=== PATIENT | female | born 1975 | race Caucasian/White ===

== ENCOUNTER → 2019-05-11 | Outpatient (CLI) | payer OTHER ==
[2019-05-11 17:12] LABS: EOS # 0.4 (0.04-0.40); EOS % 7.3 % (1.0-5.0); HEMOGLOBIN 13.6 g/dL (12.5-16.0); LYMPH# 1.6 (1.50-4.00); MEAN CELL VOLUME 95 fl (78-100); MEAN CORPUSCULAR HEMOGLOBIN 32 pg (27-31); MEAN CORPUSCULAR HGB CONC 33 g/dL (33-37); MEAN PLATELET VOLUME 10.6 fl (7.4-10.4); MONO # 0.5 (0.20-0.80); NEU # 3.4 (1.40-6.50); PLATELET COUNT 175 K/mm3 (130-400); RED BLOOD COUNT 4.32 M/mm3 (4.10-5.30); RED CELL DISTRIBUTION WIDTH 12.9 % (11.5-14.5); WHITE BLOOD COUNT 5.9 K/mm3 (4.8-10.8)
[2019-05-11 17:14] LABS: ALBUMIN 4.4 g/dL (3.5-5.0)
[2019-05-11 17:15] LABS: POTASSIUM 3.9 mmol/L (3.5-5.1)
[2019-05-11 17:16] LABS: CALCIUM 9.4 mg/dL (8.3-10.5)
[2019-05-11 17:17] LABS: TOTAL PROTEIN 7.7 g/dL (6.4-8.3)
[2019-05-11 17:19] LABS: TOTAL BILIRUBIN 0.2 mg/dL (0.2-1.2)
[2019-05-11 17:21] LABS: PHENYTOIN (DILANTIN) 6.4 ug/mL (10.0-20.0)
== END ==
LOC: LAB 16:49
PROVIDERS: Family Medicine
DX: F32.9 Major depressive disorder, single episode, unspecified (principal); G40.909 Epilepsy, unspecified, not intractable, without status epilepticus

== ENCOUNTER → 2019-09-06 | Outpatient (CLI) | payer OTHER | LOC: MAMMO 10:00 | DX: Z12.31 Encounter for screening mammogram for malignant neoplasm of breast (principal) ==

== ENCOUNTER → 2019-10-03 | Outpatient (CLI) | payer OTHER | LOC: LAB 12:07 | DX: Z20.828 Contact with and (suspected) exposure to other viral communicable diseases (principal) ==

== ENCOUNTER → 2019-10-25 | Outpatient (CLI) | payer OTHER | LOC: LAB 13:47 | DX: R56.9 Unspecified convulsions (principal) ==

== ENCOUNTER → 2019-12-14 | Outpatient (CLI) | payer OTHER | LOC: LAB 11:43 | DX: R11.0 Nausea (principal); R05 Cough; R09.81 Nasal congestion; L98.8 Other specified disorders of the skin and subcutaneous tissue; Z20.828 Contact with and (suspected) exposure to other viral communicable diseases ==

== ENCOUNTER → 2020-03-30 | Outpatient (CLI) | payer OTHER | LOC: LAB 07:32 | DX: R05 Cough (principal); R68.83 Chills (without fever); R52 Pain, unspecified; R09.81 Nasal congestion; R19.7 Diarrhea, unspecified; Z20.828 Contact with and (suspected) exposure to other viral communicable diseases ==

== ENCOUNTER → 2020-04-02 | Outpatient (CLI) | payer OTHER | LOC: LAB 07:31 | DX: R05 Cough (principal); M79.10 Myalgia, unspecified site; R09.81 Nasal congestion; R19.7 Diarrhea, unspecified; R68.83 Chills (without fever); Z20.828 Contact with and (suspected) exposure to other viral communicable diseases ==

== ENCOUNTER → 2020-04-25 | Outpatient (CLI) | payer OTHER | LOC: LAB 12:20 | DX: R56.9 Unspecified convulsions (principal); Z79.899 Other long term (current) drug therapy ==

== ENCOUNTER → 2020-11-21 | Outpatient (CLI) | payer OTHER ==
[2020-11-21 08:40] LABS: PHENYTOIN (DILANTIN) 11.3 ug/mL (10.0-20.0)
[2020-11-21 08:42] LABS: MAGNESIUM 1.98 mg/dL (1.60-2.60)
[2020-11-21 17:18] LABS: FOLATE (FOLIC ACID) 7.3 ng/mL (2.0-20.0)
== END ==
LOC: LAB 08:04
PROVIDERS: Psychiatry & Neurology Neurology
DX: E61.1 Iron deficiency (principal); R56.9 Unspecified convulsions; G25.81 Restless legs syndrome; Z79.899 Other long term (current) drug therapy

== ENCOUNTER → 2021-01-02 | Outpatient (CLI) | payer OTHER ==
[2021-01-02 10:02] LABS: POTASSIUM 4.3 mmol/L (3.5-5.1)
[2021-01-02 10:03] LABS: CALCIUM 9.6 mg/dL (8.3-10.5)
[2021-01-02 10:04] LABS: TOTAL PROTEIN 7.4 g/dL (6.4-8.3)
[2021-01-02 10:05] LABS: BASO # 0.04 (0.02-0.10); EOS # 0.24 (0.04-0.40); EOS % 6.9 % (1.0-5.0); HEMATOCRIT 41.5 % (37.0-47.0); HEMOGLOBIN 13.8 g/dL (12.5-16.0); LYMPH# 1.05 (1.50-4.00); MEAN CELL VOLUME 96 fl (78-100); MEAN CORPUSCULAR HEMOGLOBIN 32 pg (27-31); MEAN CORPUSCULAR HGB CONC 33 g/dL (33-37); MEAN PLATELET VOLUME 10.6 fl (7.4-10.4); MONO # 0.36 (0.20-0.80); NEU # 1.79 (1.40-6.50); PLATELET COUNT 162 K/mm3 (130-400); RED BLOOD COUNT 4.32 M/mm3 (4.10-5.30); RED CELL DISTRIBUTION WIDTH 12.3 % (11.5-14.5); WHITE BLOOD COUNT 3.5 K/mm3 (4.8-10.8)
[2021-01-02 10:06] LABS: TOTAL BILIRUBIN 0.5 mg/dL (0.2-1.2)
== END ==
LOC: LAB 09:40
PROVIDERS: Family Medicine
DX: Z00.00 Encounter for general adult medical examination without abnormal findings (principal); E78.5 Hyperlipidemia, unspecified; E55.9 Vitamin D deficiency, unspecified

== ENCOUNTER → 2021-02-28 | Outpatient (CLI) | payer OTHER ==
[2021-02-28 18:50] LABS: URINE APPEARANCE CLEAR; URINE BILIRUBIN NEGATIVE (NEGATIVE); URINE COLOR LIGHT YELLOW; URINE GLUCOSE NEGATIVE (NEGATIVE); URINE KETONE NEGATIVE (NEGATIVE); URINE PROTEIN(semi-quant) TRACE mg/dL (NEGATIVE); URINE UROBILINOGEN NORMAL (NORMAL)
[2021-02-28 18:51] LABS: URINE BLOOD 50 ery/uL (NEGATIVE); URINE LEUKOCYTE ESTERASE NEGATIVE (NEGATIVE); URINE MUCUS PRESENT (NOT PRESENT); URINE NITRATE NEGATIVE (NEGATIVE); URINE WBC 0-1 /hpf (0-3)
== END ==
LOC: LAB 16:42
PROVIDERS: Family Medicine
DX: R30.9 Painful micturition, unspecified (principal)

== ENCOUNTER → 2021-04-15 | Outpatient (CLI) | payer OTHER | LOC: LAB 09:57 | DX: U07.1 COVID-19 (principal) ==

== ENCOUNTER → 2021-07-01 | Outpatient (CLI) | payer OTHER ==
[2021-07-01 22:45] LABS: HEPATITIS C VIRUS ANTIBODY Negative (Negative)
== END ==
LOC: LAB 09:51
PROVIDERS: Internal Medicine
DX: Z01.89 Encounter for other specified special examinations (principal)

== ENCOUNTER → 2021-07-11 | Outpatient (CLI) | payer OTHER | LOC: EDSTATUS 13:14 → LAB 18:22 | PROVIDERS: Internal Medicine | DX: Z01.89 Encounter for other specified special examinations (principal) ==

== ENCOUNTER → 2021-07-23 | Outpatient (CLI) | payer OTHER ==
[2021-07-23 17:56] LABS: BASO # 0.04 K/mm3 (0.02-0.10); EOS # 0.28 K/mm3 (0.04-0.40); EOS % 5.4 % (1.0-5.0); HEMATOCRIT 37.7 % (37.0-47.0); HEMOGLOBIN 12.8 g/dL (12.5-16.0); LYMPH# 1.55 K/mm3 (1.50-4.00); MEAN CELL VOLUME 95 fl (78-100); MEAN CORPUSCULAR HEMOGLOBIN 32 pg (27-31); MEAN CORPUSCULAR HGB CONC 34 g/dL (33-37); MEAN PLATELET VOLUME 10.1 fl (7.4-10.4); MONO # 0.51 K/mm3 (0.20-0.80); NEU # 2.84 K/mm3 (1.40-6.50); PLATELET COUNT 154 K/mm3 (130-400); RED BLOOD COUNT 3.96 M/mm3 (4.10-5.30); RED CELL DISTRIBUTION WIDTH 12.5 % (11.5-14.5); WHITE BLOOD COUNT 5.2 K/mm3 (4.8-10.8)
[2021-07-23 18:00] LABS: ALBUMIN 4.1 g/dL (3.5-5.0); POTASSIUM 3.5 mmol/L (3.5-5.1)
[2021-07-23 18:01] LABS: CALCIUM 8.9 mg/dL (8.3-10.5)
[2021-07-23 18:03] LABS: TOTAL PROTEIN 7.3 g/dL (6.4-8.3)
[2021-07-23 18:04] LABS: TOTAL BILIRUBIN 0.2 mg/dL (0.2-1.2)
== END ==
LOC: LAB 17:32
PROVIDERS: Psychiatry & Neurology Neurology
DX: G40.209 Localization-related (focal) (partial) symptomatic epilepsy and epileptic syndromes with complex partial seizures, not intractable, without status epilepticus (principal); E55.9 Vitamin D deficiency, unspecified; E61.1 Iron deficiency; Z79.899 Other long term (current) drug therapy

== ENCOUNTER → 2021-08-13 | Outpatient (CLI) | payer OTHER | LOC: LAB 17:16 | DX: Z01.89 Encounter for other specified special examinations (principal) ==

== ENCOUNTER → 2021-08-15 | Outpatient (CLI) | payer OTHER | LOC: AMSURD 18:25 | DX: R07.89 Other chest pain (principal) ==

== ENCOUNTER → 2021-10-01 | Outpatient (CLI) | payer OTHER | LOC: LAB 16:59 | DX: Z01.89 Encounter for other specified special examinations (principal) ==

== ENCOUNTER 2022-01-08 11:10 | Outpatient (CLI) | payer OTHER ==
[2022-01-08 21:36] LABS: HEPATITIS C VIRUS ANTIBODY Negative (Negative)
== END 2022-01-08 23:59 | disposition home or self-care (01) ==
LOC: EDSTATUS 11:10 → LAB 11:10
PROVIDERS: Internal Medicine
DX: Z01.89 Encounter for other specified special examinations (principal)

== ENCOUNTER → 2022-01-08 | Outpatient (CLI) | payer OTHER ==
[2022-01-08 10:49] LABS: POTASSIUM 4.1 mmol/L (3.5-5.1); SODIUM 137 mmol/L (136-145)
[2022-01-08 10:50] LABS: ALBUMIN 4.1 g/dL (3.5-5.0)
[2022-01-08 10:52] LABS: GLUCOSE 90 mg/dL (65-105); TOTAL PROTEIN 7.2 g/dL (6.4-8.3)
[2022-01-08 10:53] LABS: CARBON DIOXIDE 25 mmol/L (22-29)
[2022-01-08 10:54] LABS: TOTAL BILIRUBIN 0.4 mg/dL (0.2-1.2)
[2022-01-08 10:58] LABS: AST-SGOT 20 U/L (5-34)
[2022-01-08 10:59] LABS: ALT/SGPT 18 U/L (0-55)
[2022-01-08 11:37] LABS: BASO # 0.02 K/mm3 (0.02-0.10); EOS # 0.14 K/mm3 (0.04-0.40); EOS % 4.4 % (1.0-5.0); HEMATOCRIT 38.4 % (37.0-47.0); HEMOGLOBIN 12.8 g/dL (12.5-16.0); LYMPH# 0.89 K/mm3 (1.50-4.00); MEAN CELL VOLUME 97 fl (78-100); MEAN CORPUSCULAR HEMOGLOBIN 32 pg (27-31); MEAN CORPUSCULAR HGB CONC 33 g/dL (33-37); MEAN PLATELET VOLUME 11.3 fl (7.4-10.4); MONO # 0.29 K/mm3 (0.20-0.80); NEU # 1.82 K/mm3 (1.40-6.50); PLATELET COUNT 141 K/mm3 (130-400); RED BLOOD COUNT 3.97 M/mm3 (4.10-5.30); RED CELL DISTRIBUTION WIDTH 12.6 % (11.5-14.5); WHITE BLOOD COUNT 3.2 K/mm3 (4.8-10.8)
[2022-01-08 12:54] LABS: ERYTHROCYTE SEDIMENTATION RATE 15 mm/hr (0-20)
[2022-01-10 07:32] LABS: ASPERGILLUS FUMIGATUS AL COUNT <0.10 kU/L (()); BOX ELDER-MAPLE ALLERGEN COUNT <0.10 kU/L (())
[2022-01-10 07:33] LABS: ALTERNARIA TENUIS CNT <0.10 kU/L (()); BERMUDA GRASS ALLERGEN COUNT <0.10 kU/L (()); CAT DANDER ALLERGEN COUNT <0.10 kU/L (()); CLADOSPORIUM ALLERGEN COUNT <0.10 kU/L (()); COCKROACH ALLERGEN COUNT <0.10 kU/L (()); CODFISH ALLERGEN COUNT <0.10 kU/L (()); COTTONWOOD TREE ALLERGEN COUNT <0.10 kU/L (()); DOG DANDER ALLERGEN COUNT <0.10 kU/L (()); DUST MITES (D.F.) ALLERG COUNT <0.10 kU/L (()); DUST MITES (D.P.) ALLERG COUNT <0.10 kU/L (()); EGG WHITE ALLERGEN COUNT <0.10 kU/L (()); ELM TREE ALLERGEN COUNT <0.10 kU/L (()); FIREBUSH ALLERGEN COUNT <0.10 kU/L (()); MILK ALLERGEN COUNT <0.10 kU/L (()); OAK ALLERGEN COUNT <0.10 kU/L (()); PEANUT ALLERGEN COUNT <0.10 kU/L (()); ROUGH MARSH ELDER ALLERG COUNT <0.10 kU/L (()); RUSSIAN THISTLE ALLERGEN COUNT <0.10 kU/L (()); SHORT RAGWEED ALLERGEN COUNT <0.10 kU/L (()); SOYBEAN ALLERGEN COUNT <0.10 kU/L (()); WHEAT ALLERGEN COUNT <0.10 kU/L (())
[2022-01-13 13:47] LABS: ANA SCREEN with REFLEX NEG
== END ==
LOC: LAB 10:05
PROVIDERS: Family Medicine
DX: Z00.00 Encounter for general adult medical examination without abnormal findings (principal); G40.909 Epilepsy, unspecified, not intractable, without status epilepticus; F32.9 Major depressive disorder, single episode, unspecified; E78.5 Hyperlipidemia, unspecified; M19.90 Unspecified osteoarthritis, unspecified site; J30.2 Other seasonal allergic rhinitis; E55.9 Vitamin D deficiency, unspecified

== ENCOUNTER → 2023-04-23 | Outpatient (CLI) | payer OTHER | LOC: MAMMO 09:55 | DX: Z12.31 Encounter for screening mammogram for malignant neoplasm of breast (principal) ==

== ENCOUNTER → 2023-07-09 | Outpatient (CLI) | payer OTHER | LOC: RAD 13:21 | DX: M25.512 Pain in left shoulder (principal) ==

== ENCOUNTER → 2023-08-25 | Outpatient (CLI) | payer OTHER ==
[2023-08-25 11:08] LABS: BASO # 0.04 K/mm3 (0.02-0.10); EOS # 0.26 K/mm3 (0.04-0.40); EOS % 4.9 % (1.0-5.0); HEMOGLOBIN 13.9 g/dL (12.5-16.0); LYMPH# 1.07 K/mm3 (1.50-4.00); MEAN CELL VOLUME 97 fl (78-100); MEAN CORPUSCULAR HEMOGLOBIN 32 pg (27-31); MEAN CORPUSCULAR HGB CONC 33 g/dL (33-37); MEAN PLATELET VOLUME 10.3 fl (7.4-10.4); MONO # 0.51 K/mm3 (0.20-0.80); NEU # 3.45 K/mm3 (1.40-6.50); PLATELET COUNT 171 K/mm3 (130-400); RED BLOOD COUNT 4.33 M/mm3 (4.10-5.30); RED CELL DISTRIBUTION WIDTH 13.3 % (11.5-14.5); WHITE BLOOD COUNT 5.3 K/mm3 (4.8-10.8)
[2023-08-25 11:17] LABS: ALBUMIN 4.6 g/dL (3.5-5.0)
[2023-08-25 11:18] LABS: CALCIUM 9.8 mg/dL (8.3-10.5)
[2023-08-25 11:21] LABS: TOTAL BILIRUBIN 0.4 mg/dL (0.2-1.2)
== END ==
LOC: LAB 07:55
PROVIDERS: Family Medicine
DX: E61.1 Iron deficiency (principal); G40.909 Epilepsy, unspecified, not intractable, without status epilepticus; E55.9 Vitamin D deficiency, unspecified; M19.90 Unspecified osteoarthritis, unspecified site; E78.5 Hyperlipidemia, unspecified

== ENCOUNTER → 2023-10-28 | Outpatient (CLI) | payer OTHER ==
[2023-10-28 17:45] LABS: URINE WBC 0 /hpf (0-3)
[2023-10-28 17:55] LABS: BASO # 0.03 K/mm3 (0.02-0.10); EOS # 0.12 K/mm3 (0.04-0.40); EOS % 1.9 % (1.0-5.0); HEMATOCRIT 39.8 % (37.0-47.0); LYMPH# 1.28 K/mm3 (1.50-4.00); MEAN CELL VOLUME 98 fl (78-100); MEAN CORPUSCULAR HEMOGLOBIN 32 pg (27-31); MEAN CORPUSCULAR HGB CONC 33 g/dL (33-37); MEAN PLATELET VOLUME 9.4 fl (7.4-10.4); MONO # 0.61 K/mm3 (0.20-0.80); NEU # 4.43 K/mm3 (1.40-6.50); PLATELET COUNT 211 K/mm3 (130-400); RED BLOOD COUNT 4.07 M/mm3 (4.10-5.30); WHITE BLOOD COUNT 6.5 K/mm3 (4.8-10.8)
[2023-10-28 18:02] LABS: ALBUMIN 4.1 g/dL (3.5-5.0); SODIUM 136 mmol/L (136-145)
[2023-10-28 18:03] LABS: CALCIUM 9.4 mg/dL (8.3-10.5)
[2023-10-28 18:05] LABS: GLUCOSE 99 mg/dL (65-105); TOTAL PROTEIN 7.4 g/dL (6.4-8.3)
[2023-10-28 18:06] LABS: CARBON DIOXIDE 25 mmol/L (22-29)
[2023-10-28 18:07] LABS: TOTAL BILIRUBIN 0.3 mg/dL (0.2-1.2)
[2023-10-28 18:10] LABS: AST-SGOT 28 U/L (5-34)
[2023-10-28 18:11] LABS: ALT/SGPT 30 U/L (0-55); MAGNESIUM 1.99 mg/dL (1.60-2.60)
[2023-10-28 19:04] LABS: URINE APPEARANCE CLEAR (CLEAR); URINE COLOR YELLOW (YELLOW)
[2023-10-28 19:05] LABS: PH-URINE 5.5 (5.0 - 8.0); URINE BILIRUBIN NEGATIVE (NEGATIVE); URINE BLOOD TRACE (NEGATIVE); URINE GLUCOSE NEGATIVE (NEGATIVE); URINE KETONE NEGATIVE (NEGATIVE); URINE LEUKOCYTE ESTERASE NEGATIVE (NEGATIVE); URINE NITRATE NEGATIVE (NEGATIVE); URINE PROTEIN(semi-quant) NEGATIVE (NEGATIVE)
== END ==
LOC: LAB 17:40
PROVIDERS: Nurse Practitioner Family
DX: R29.2 Abnormal reflex (principal); R51.9 Headache, unspecified

== ENCOUNTER → 2023-10-30 | Outpatient (CLI) | payer OTHER ==
[2023-10-30 11:30] VITALS: BP 139/69
[2023-10-30 12:25] VITALS: BP 132/74
== END ==
LOC: AMSURD 10:47
DX: R25.3 Fasciculation (principal)
CPT/HCPCS: J3360

== ENCOUNTER → 2023-11-03 | Outpatient (CLI) | payer OTHER ==
[~2023-11-03] MED LIST: Gadoterate 20 ML VIAL IV ONE
== END ==
LOC: RAD 12:51
DX: R25.1 Tremor, unspecified (principal); M25.512 Pain in left shoulder
CPT/HCPCS: A9575

== ENCOUNTER → 2024-03-31 | Outpatient (CLI) | payer OTHER | LOC: AMSURD 18:12 | DX: R56.9 Unspecified convulsions (principal) ==